=== PATIENT | male | born 1965 | race Caucasian/White ===

== ENCOUNTER → 2020-09-10 | Outpatient (CLI) | payer OTHER ==
[~2020-09-10] MED LIST: BUSPAR 30MG30 MG/TAB PO; DESYREL 100MG100 MG PO; DOXYCYCLINE 10100 MG PO; LIPITOR 80MG80 MG PO; LISINOPRIL; MELATIN 3 MG-11 TAB PO; MIRALAX PA17 GM/Dose PO; MUCUS-CHES100 MG/5 M PO; NORCO 325 MG-51 TAB PO; NORVASC 10MG10 MG PO; PREDNISONE20 MG PO; PRIL40 PO; PRINIVIL10 MG PO; PROZAC 20MG20 MG PO; SINGULAIR 110 MG/TAB PO; VITAMIN D31000 I1 PO; WELLBUTRIN SR150 M1 PO; ZOLOFT; ZOLOFT 100MG100 MG PO
[2020-09-10 08:04] LABS: HEMATOCRIT 42.3 % (42.0-52.0); HEMOGLOBIN 13.9 g/dl (13.5-18.0); MEAN CELL VOLUME 86 fl (80.0-100.0); MEAN CORPUSCULAR HEMOGLOBIN 28 pg (27.0-31.0); MEAN CORPUSCULAR HGB CONC 33 g/dl (33.0-37.0); MEAN PLATELET VOLUME 10.5 fl (7.4-10.4); PLATELET COUNT 213 K/mm3 (130-400); RED BLOOD COUNT 4.94 M/mm3 (4.20-5.60); REDCELL DISTRIBUTION WIDTH-CV 15.4 % (11.5-14.5)
[2020-09-10 08:18] LABS: ALBUMIN 4.2 gm/dL (3.5-5.0); BILIRUBIN,TOTAL 0.6 mg/dL (0.0-1.0); CALCIUM 9.1 mg/dL (8.4-10.2); POTASSIUM 3.5 mmol/L (3.4-5.0); TOTAL PROTEIN 7.2 gm/dL (6.4-8.2)
== END ==
LOC: COL.LAB 07:13 → COL.CARD 07:13
PROVIDERS: Surgery
DX: Z01.818 Encounter for other preprocedural examination (principal); Z20.822 Contact with and (suspected) exposure to COVID-19

== ENCOUNTER 2020-09-16 12:38 | Day surgery (SDC) | payer OTHER ==
[2020-09-16] VITALS (9 sets, daily range): BP systolic 134–161; BP diastolic 64–92; PULSE 60–78; TEMP 97.1–99.1
[~2020-09-16] VITALS: Ht 188 cm; Wt 125.0 kg
[~2020-09-16 12:38] MED LIST changes: -BUSPAR 30MG30 MG/TAB PO; -DESYREL 100MG100 MG PO; -MELATIN 3 MG-11 TAB PO; -MIRALAX PA17 GM/Dose PO; -MUCUS-CHES100 MG/5 M PO; -NORCO 325 MG-51 TAB PO; -PRIL40 PO; -PROZAC 20MG20 MG PO; -WELLBUTRIN SR150 M1 PO
[2020-09-16] MEDS ORDERED: WELLBUTRIN SR150 M1 PO (12:58)
[2020-09-16] MEDS ORDERED: BUSPAR 30MG30 MG/TAB PO (12:59)
[2020-09-16] MEDS ORDERED: MUCUS-CHES100 MG/5 M PO (13:00)
[2020-09-16] MEDS ORDERED: PROZAC 20MG20 MG PO (13:01)
[2020-09-16] MEDS ORDERED: MELATIN 3 MG-11 TAB PO (13:02)
[2020-09-16] MEDS ORDERED: PRIL40 PO (13:03)
[2020-09-16] MEDS ORDERED: MIRALAX PA17 GM/Dose PO (13:04)
[2020-09-16] MEDS ORDERED: DESYREL 100MG100 MG PO (13:04)
--- NOTE | 2020-09-16 14:34 | NUR ---
Patient ambulates to the restroom, voids, and returns to room.
[2020-09-16] MEDS ORDERED: NORCO 325 MG-51 TAB PO (16:43)
--- NOTE | 2020-09-16 18:53 | NUR ---
Patient received post op. Slighty drowsy. Vss on O2. He is tolerating ice cream, without nasuea. Abdomen soft, bandaids x3. Umbilicus gauze CDI. Scds ble. Report to Elena Rn
--- NOTE | 2020-09-16 20:09 | NUR ---
DR SYLVIA ROSADO NORCO 5/325MG 1 TAB FOR PAIN. GIVEN ONE DOSE AT THIS TIME.
--- NOTE | 2020-09-16 21:00 | NUR ---
PT REPORTS FEELING BETTER AND IS ASSISTED TO BATHROOM. VOIDS WITHOUT DIFFICULTY. READY TO GO HOME.
--- NOTE | 2020-09-16 21:10 | NUR ---
DISCHARGE INSTRUCTIONS REVIEWED WITH PATIENT. PT IS DRESSED AND IS IS ON THE WAY TO PICK HIM UP. INT DC'D FROM LEFT WRIST, ANGIOCATH INTACT. PT REPORTS HIS DTR HAS PICKED UP HIS PAIN MEDS.
--- NOTE | 2020-09-16 21:20 | NUR ---
PT TAKEN VIA W/C TO PRIVATE CAR FOR DISCHARGE. PERSONAL BELONGINGS SENT WITH PT WELL DISCHARGE INSTRUCTIONS.
== END 2020-09-16 21:20 | disposition home or self-care (01) ==
LOC: SDCO → SURG 18:01 → SDCO 21:20
DX: K40.91 Unilateral inguinal hernia, without obstruction or gangrene, recurrent (principal); K42.9 Umbilical hernia without obstruction or gangrene; I10 Essential (primary) hypertension; J45.909 Unspecified asthma, uncomplicated; E78.00 Pure hypercholesterolemia, unspecified; E66.9 Obesity, unspecified; E78.5 Hyperlipidemia, unspecified; G47.33 Obstructive sleep apnea (adult) (pediatric); K21.9 Gastro-esophageal reflux disease without esophagitis; M19.90 Unspecified osteoarthritis, unspecified site; F17.210 Nicotine dependence, cigarettes, uncomplicated; F32.9 Major depressive disorder, single episode, unspecified; F41.9 Anxiety disorder, unspecified; Z79.899 Other long term (current) drug therapy; Z96.659 Presence of unspecified artificial knee joint; Z99.89 Dependence on other enabling machines and devices; Z68.36 Body mass index [BMI] 36.0-36.9, adult; Z20.822 Contact with and (suspected) exposure to COVID-19; Z80.9 Family history of malignant neoplasm, unspecified
CPT/HCPCS: OP; C1781; J0330; J0690; J1100; J1170; J1885; J2405; J2704; J3010; J7120